=== PATIENT | female | born 1950 | race Caucasian/White ===

== ENCOUNTER → 2019-08-28 11:15 | Outpatient (BNVA) | payer MEDICARE, MEDICAID, SELFPAY | PROVIDERS: Family Provider Nurse Practitioner Family; PCP Nurse Practitioner Family; Visit Provider Nurse Practitioner Family | DX: J06.9 Acute upper respiratory infection, unspecified (principal); J02.9 Acute pharyngitis, unspecified | CPT/HCPCS: 87081; 87880 ==

== ENCOUNTER 2019-08-31 07:28 | Emergency (ER) | payer MEDICARE, MEDICAID, SELFPAY ==
[2019-08-31 07:30] VITALS: BP 162/86; PULSE 72; RESP 20; TEMP 36.7; O2SAT 94; BMI 25.7
--- NOTE | 2019-08-31 07:34 | ED_ITS ---
Entered by Yobani Huitron, acting as scribe for Sumit Zavala DO HPI - Nausea/Vomiting/Diarrhea General: Chief complaint: Headache Stated complaint: N/V Time Seen by Provider: 08/31/19 07:34 History of Present Illness: HPI Narrative: 69 yo female presents with nausea and vomiting. Pt states that she has been vomiting and having diarrhea since midnight last night. Patient later complained of a headache behind the right eye. It is red and inflamed she says that started overnight as well. MD elicited complaint: nausea, vomiting and diarrhea Associated nausea: Yes Associated symtoms: Reports change in vision, dysuria, fatigue and nausea; Denies anxiety, chest pain, dizziness, headache(s), malaise, palpitations or syncope Review of Systems Const: Reports: chills, body aches and fatigue; Denies: fever, malaise or night sweats Eyes: Reports: change in vision and blurry vision ENMT: Denies: throat pain, oral sores/lesions, dental pain, nasal discharge or nasal congestion Card: Denies: chest pain, palpitations, irregular heart rhythm, edema, syncope, shortness of breath on exertion, shortness of breath when lying down or leg pain with exertion Resp: Reports: non-productive cough; Denies: shortness of breath, productive cough or wheezing GI: Reports: nausea, vomiting and diarrhea; Denies: abdominal pain, vomiting blood, coffee grounds in vomit, difficulty swallowing, heartburn/indigestion, constipation, cramping, blood in stool or black tarry stool : Reports: painful urination and urinary frequency; Denies: flank pain, urinary urgency, urinary incontinence or blood in urine Musc: Denies: neck pain, back pain, extremity pain, extremity swelling, joint pain or joint swelling Skin/Breast: Denies: rash, itching or redness Neuro: Denies: headache, numbness in extremities, weakness in extremities, changes in sensation, lack of coordination, difficulty walking, frequent falls, dizziness, vertigo or confusion Psych: Denies: anxiety, depression, loss of interest, visual hallucinations, auditory hallucinations, suicidal ideation or homicidal ideation Endo: Denies: excessive urination, excessive thirst, tired all the time or cold intolerance Dennis/Lymph: Denies: easy bruising, easy bleeding, petechiae, enlarged lymph nodes or tender lymph nodes PFS ED PFSH: Surgical History H/O: hysterectomy History of appendectomy History of eye surgery History of nasal surgery History of tubal ligation Social History (Updated 08/28/19 @ 11:12 by Dana Ortiz LPN) Smoking and tobacco status: current every day smoker cigarettes Packs smoked per day: 0.5 Alcohol intake: never Lives independently: Yes Household members: spouse Housing: House Marital status: History of recent travel: No Physical Exam Const: COMMON NORMALS: average body habitus, oriented x3 and alert GENERAL APPEARANCE: cooperative, comfortable, well kempt and well developed NUTRITIONAL APPEARANCE: not obese ORIENTATION/CONSCIOUSNESS: Yes awake, Yes oriented to person and Yes oriented to place HENMT: COMMON NORMALS: normocephalic, head/scalp atraumatic, EAC's normal, TM's normal bilaterally, external nose normal, moist oral mucous membranes and oropharynx normal HEAD & SCALP: normocephalic and atraumatic NOSE: external nose normal EXTERNAL AUDITORY CANAL: EAC's normal TYMPANIC MEMBRANE: TM's normal bilaterally MOUTH: oral and palatal mucosa normal, lip normal and tongue normal THROAT: posterior oropharynx normal and tonsils normal Eye: COMMON NORMALS: PERRL, EOMs intact bilaterally and no scleral icterus VISUAL ACUITY: Yes visual acuity right eye (Only able to distinguish shapes. Cannot read 1 in print at a distance of 14 to 16 inches.) CONJUNCTIVA: Yes conjunctiva abnormal positive right conjunctival chemosis and conjunctival injection PUPIL: Yes PERRL Neck/C-Spine: COMMON NORMALS: full ROM, no lymphadenopathy, supple, no meningeal signs and thyroid normal THYROID: thyroid normal and asymmetrical Lymph: LYMPHATIC: no lymphadenopathy noted Resp: COMMON NORMALS: normal respiratory effort, no retractions, no use of accessory muscles and clear to auscultation bilaterally AUSCULTATION: clear to auscultation bilaterally Cardio: COMMON NORMALS: regular rate and regular rhythm RATE: regular rate RHYTHM: regular rhythm HEART SOUNDS: no murmurs GI: COMMON NORMALS: normal to inspection, nondistended, normoactive bowel sounds, soft to palpation and no hepatosplenomegaly PALPATION: Yes soft and Yes no hepatosplenomegaly : COMMON NORMALS: Yes no CVA tenderness BLADDER/KIDNEY EXAM: Yes no CVA tenderness Back/Pelvis: COMMON NORMALS: no CVA tenderness LUMBAR SPINE/LOWER BACK: Yes normal to inspection Extremity: COMMON NORMALS: no clubbing, cyanosis or edema, no calf tenderness and no pedal edema Neuro: COMMON NORMALS: oriented x3 SENSORIUM/ORIENTATION: Yes alert, Yes oriented to person and Yes oriented to place MENINGEAL SIGNS: Yes no meningeal signs Psych: APPEARANCE: Yes well kempt Skin: COMMON NORMALS: no rashes or lesions noted and skin turgor normal GENERAL SKIN EXAM: no rashes or lesions noted and turgor normal Course ED course: Patient has an elevated intraocular pressure on the bedside sonometer he she has a pressure of 56. I was able to get a hold of Dr. Hi. At this point to state patient is stable. Her initial complaint was nausea vomiting I thought it was secondary to her bladder infection when I went back to talk to her about her findings she began to complain of a headache. She had a cataract surgery a few weeks ago. I get a hold of Dr. Hi he asked to have the patient sent directly to his office we do not have adequate equipment here for a more in-depth eye exam. Patient was discharge instructions to meet Dr. Hi at his office at 1130 she should proceed directly there from the emergency room. Vital Signs: Vital signs: Vital Signs Temperature 98.1 F 08/31/19 07:30 Pulse Rate 57 L 08/31/19 11:21 Respiratory Rate 16 08/31/19 11:21 Blood Pressure 140/84 08/31/19 11:21 Pulse Oximetry 96 08/31/19 11:21 MDM - Nausea/Vomiting/Diarrhea Lab Data: Labs: Lab Results 08/31/19 08/31/19 08/31/19 Range/Units 07:30 07:38 07:38 WBC 10.2 H (4.0-10.0) 10^3/ uL RBC 5.26 (4.1-5.3) 10^6/u L Hgb 14.9 (11.5-15.3) g/dL Hct 47.3 H (37.0-47.0) % MCV 89.9 (81-99) fL MCH 28.3 (28.0-34.0) pg MCHC 31.5 (30.0-36.0) g/dL RDW 13.3 (12.1-15.1) % Plt Count 245 (130-400) 10^3/c mm MPV 11.7 H (7.4-10.4) fL Neut % (Auto) 81.0 % Lymph % (Auto) 14.5 % [place] % (Auto) 3.7 % Eos % (Auto) 0.1 % Baso % (Auto) 0.4 % Neut # (Auto) 8.3 H (1.8-7.7) 10^3/u L Lymph # (Auto) 1.5 (0.8-4.8) 10^3/u L [place] # (Auto) 0.4 (0.2-0.9) 10^3/u L Eos # (Auto) 0.0 (0.0-0.8) 10^3/u L Baso # (Auto) 0.0 (0.0-0.1) 10^3/u L Nucleated RBC % (a uto) 0 % Nucleated RBCs # 0.0 /100WBC Sodium 142 (136-145) mmol/L Potassium 4.0 (3.5-5.1) mmol/L Chloride 98 (98-107) mmol/L Carbon Dioxide 29 (22-29) mmol/L Anion Gap 19.0 (5-19) BUN 15 (8-23) mg/dL Creatinine 0.8 (0.5-0.9) mg/dL Glucose 157 H (65-115) mg/dL Calcium 10.2 (8.5-10.5) mg/dL Total Bilirubin 0.6 (0.15-1.2) mg/dL AST 24 (0-32) U/L ALT 23 (0-33) U/L Alkaline Phosphata se 34 L (35-105) IU/L Total Protein 8.7 (6.6-8.7) g/dL Albumin 4.3 (3.5-5.2) g/dL Globulin 4.4 (1.3-4.6) g/dL Lipase 27 (13-60) U/L Urine Color Yellow (Yellow) Urine Appearance Hazy A (CLEAR) Urine pH 8 H (5-7) Ur Specific Gravit y 1.010 (1.005-1.030) Urine Protein Neg (Negative) Urine Glucose (UA) Norm (Normal) Urine Ketones 1+ H (Negative) Urine Blood Neg (Negative) Urine Nitrate Negative (Negative) Urine Bilirubin Neg (NEGATIVE) Prot Sulfosalicyli c Acd Negative Urine Urobilinogen 1 H (Negative) mg/dL Ur Leukocyte Racquel ase 2+ H (Negative) Urine RBC None (0-2) /hpf Urine WBC 15-25 H (0-5) /hpf Ur Squamous Epith Cells 5-10 H (0-5) Amorphous Sediment 1+ Urine Bacteria 2+ H (NONE) Urine Mucus 1+ Discharge Plan Discharge Patient Disposition: Home, Self-Care Clinical Impression: Glaucoma, Cystitis Condition: Stable Prescriptions: New Macrobid 100 mg capsule 100 mg PO Q12H 5 Days Qty: 10 RF: 0 No Action promethazine-DM 6.25-15 mg/5 mL syrup 5 - 10 ml PO Q6H PRN (Reason: cough) 14 Days Qty: 240 RF: 0 Aleve 220 mg Tablet 220 mg PO BID PRN (Reason: Pain) RF: 0 prednisol [id number] 1-0.5-0.075 % Drops,Suspension See Rx Instructions .ROUTE .COMPLEX RF: 0 Referrals: Suzanne Mcclure FNP-C [Primary Care Provider] - Socorro Mendoza FNP [Family Provider] - Discharge Diet: Usual diet Discharge Activity: Resume usual activity Activity Restrictions/Additional Instructions: From the emergency room go directly to Dr. Hi's office or he will see you for your elevated eye pressure Discharge Date/Time: 08/31/19 11:22 Coding Level of Care Code ED Welfare Visitor for Chg Fwd Exam Comprehensive The documentation recorded by the Tomy gifford Kialy, accurately reflects the service I personally performed and the decisions made by Lucas mcclain Curtis L, DO Aug 31, 2019 07:28
[2019-08-31 07:43] LABS: Basophils % 0.4 %; Eosinophils % 0.1 %; Hematocrit 47.3 % (37.0-47.0); Hemoglobin 14.9 g/dL (11.5-15.3); Lymphocytes # 1.5 10^3/uL (0.8-4.8); Lymphocytes % 14.5 %; Mean Corpuscular HGB Conc 31.5 g/dL (30.0-36.0); Mean Corpuscular Hemoglobin 28.3 pg (28.0-34.0); Mean Corpuscular Volume 89.9 fL (81-99); Mean Platelet Volume 11.7 fL (7.4-10.4); Monocytes # 0.4 10^3/uL (0.2-0.9); Monocytes % 3.7 %; Neutrophils # 8.3 10^3/uL (1.8-7.7); Nucleated Red Blood Cells % 0 %; Platelet Count 245 10^3/cmm (130-400); Red Blood Count 5.26 10^6/uL (4.1-5.3); Red Cell Distribution Width 13.3 % (12.1-15.1); White Blood Count 10.2 10^3/uL (4.0-10.0)
[2019-08-31] MEDS: sodium chloride 0.9% 1,000 ML 999 ML IV (07:43)
[2019-08-31 07:44] VITALS: BP 162/86; RESP 16; O2SAT 97
[2019-08-31] MEDS: ondansetron 2 mg/ML SDV 2 mL 4 MG IVP (07:44)
[2019-08-31 07:46] VITALS: RESP 16
[2019-08-31 08:01] LABS: Alanine Aminotransferase 23 U/L (0-33); Albumin Level 4.3 g/dL (3.5-5.2); Alkaline Phosphatase 34 IU/L (35-105); Aspartate Amino Transferase 24 U/L (0-32); Blood Urea Nitrogen 15 mg/dL (8-23); Calcium 10.2 mg/dL (8.5-10.5); Carbon Dioxide 29 mmol/L (22-29); Chloride 98 mmol/L (98-107); Globulin 4.4 g/dL (1.3-4.6); Glucose 157 mg/dL (65-115); Lipase 27 U/L (13-60); Sodium 142 mmol/L (136-145); Total Bilirubin 0.6 mg/dL (0.15-1.2); Total Protein 8.7 g/dL (6.6-8.7)
[2019-08-31 08:18] LABS: Bilirubin Urine Neg (NEGATIVE); Blood Urine Neg (Negative); Glucose Urine UA Norm (Normal); Ketones Urine 1+ (Negative); Leukocyte Esterase Urine 2+ (Negative); Nitrate Urine Negative (Negative); Protein Urine Neg (Negative); Sulfosalicylic Acid Urine Negative; Urine Appearance Hazy (CLEAR); Urine Color Yellow (Yellow); Urobilinogen Urine 1 mg/dL (Negative); pH Urine 8 (5-7)
[2019-08-31 08:19] LABS: Add Urine Microscopic? YES
[2019-08-31 08:22] LABS: Amorphous Sediment Urine 1+; Bacteria Urine 2+; Mucus Urine 1+; WBC Urine 15-25 /hpf (0-5)
[2019-08-31 08:23] LABS: Add Urine Culture? Yes
[2019-08-31] MEDS: sodium chlor 0.9% + KCl 20 mEq 20 MEQ/1,000 ML BAG 125 MEQ IV (08:25)
[2019-08-31] MEDS: cefTRIAXone 1,000 MG in sodium chloride 0.9% (plus) 50 ML 100 MG IV (08:52)
[2019-08-31 09:25] VITALS: RESP 17; O2SAT 96
[2019-08-31] MEDS: morphine 4 mg/mL SDV 1 mL IVP (09:25)
[2019-08-31] MEDS: tetracaine 0.5% Op Soln 4 mL Btl 1 DROP EYE-RIGHT (11:11)
[2019-08-31 11:17] VITALS: RESP 16; O2SAT 95
[2019-08-31] MEDS: morphine 4 mg/mL SDV 1 mL 2 MG IVP (11:17)
[2019-08-31 11:21] VITALS: BP 140/84; PULSE 57; RESP 16; O2SAT 96
== END 2019-08-31 11:22 | disposition home or self-care (01) ==
PROVIDERS: Emergency Provider Family Medicine; Family Provider Nurse Practitioner Family; PCP Nurse Practitioner Family
DX: N30.90 Cystitis, unspecified without hematuria (principal); H40.9 Unspecified glaucoma; F17.210 Nicotine dependence, cigarettes, uncomplicated
CPT/HCPCS: 12345; 80053; 81001; 83690; 85025; 87086; 96365; 96366; 96375; 96376; 99283; 99284; A9270; J0696; J2270; J2405; J7030

== ENCOUNTER 2020-06-04 12:31 | Outpatient (CLI) | payer MEDICARE, MEDICAID, SELFPAY ==
--- NOTE | 2020-06-04 12:44 | XR_ITS ---
WS: [id number] HIP WITH PELVIS LEFT TECHNIQUE: 3 views of the left hip with pelvis CLINICAL INFORMATION: S79.919A - Unspecified injury of unspecified hip, initial encounter COMPARISON: None. FINDINGS: Mild degenerative arthritis left hip with mild joint space narrowing. No acute fractures. Normal visu alized left pubic rami. XR/XR hip LT 2-3V wo/w pel* [id number] IMPRESSION: Mild degenerative arthritis left hip. No acute fractures.
== END 2020-06-04 12:32 | disposition home or self-care (01) ==
PROVIDERS: PCP Nurse Practitioner Family; Visit Provider Nurse Practitioner Family
DX: S79.919A Unspecified injury of unspecified hip, initial encounter (principal); X58.XXXA Exposure to other specified factors, initial encounter; M16.12 Unilateral primary osteoarthritis, left hip
CPT/HCPCS: 73502

== ENCOUNTER → 2020-11-04 15:32 | Outpatient (BNVA) | payer MEDICARE, MEDICAID, SELFPAY | PROVIDERS: PCP Nurse Practitioner Family; Visit Provider Nurse Practitioner | DX: M77.8 Other enthesopathies, not elsewhere classified (principal); M21.611 Bunion of right foot; M79.671 Pain in right foot; I10 Essential (primary) hypertension; Z79.899 Other long term (current) drug therapy | CPT/HCPCS: 73630; 80053; 80061; 83036; 84443; 85025 ==

== ENCOUNTER → 2022-03-23 10:15 | Outpatient (BNVA) | payer MEDICARE, MEDICAID, SELFPAY | PROVIDERS: PCP Nurse Practitioner Family; Visit Provider Nurse Practitioner | DX: M79.18 Myalgia, other site (principal); M79.605 Pain in left leg; E78.2 Mixed hyperlipidemia; I10 Essential (primary) hypertension | CPT/HCPCS: 80053; 80061; 84443; 85025 ==

== ENCOUNTER → 2022-03-30 09:00 | Outpatient (BNVA) | payer MEDICARE, MEDICAID, SELFPAY | PROVIDERS: PCP Nurse Practitioner Family; Visit Provider Nurse Practitioner | DX: M79.605 Pain in left leg (principal) | CPT/HCPCS: 73562; 73590 ==

== ENCOUNTER 2022-04-26 11:24 | Outpatient (CLI) | payer MEDICARE, MEDICAID, SELFPAY ==
--- NOTE | 2022-04-26 11:36 | MM_ITS ---
WS: [id number] BILATERAL SCREENING DIGITAL TOMOSYNTHESIS MAMMOGRAM WITH CAD HISTORY: Z12.39 - Encounter for other screening for malignant neoplasm... COMPARISON: 06/12/2017 and 10/07/2013 Bilateral CC and MLO views with tomosynthesis and synthetic mammography submitted. Computer aided det ection analyzed. Breast composition: There are scattered areas of fibroglandular density. No suspicious masses, microc alcifications or architectural distortion. Stable 5 mm nodule upper outer LEFT breast. Benign breast arterial calcifications. MM/[place] [id number] IMPRESSION: BI-RADS: 2-Benign FOLLOW UP: 1 Year Follow-up
== END 2022-04-26 11:25 | disposition home or self-care (01) ==
LOC: RAD 11:25
PROVIDERS: PCP Nurse Practitioner; Visit Provider Nurse Practitioner
DX: Z12.31 Encounter for screening mammogram for malignant neoplasm of breast (principal)
CPT/HCPCS: 77063; 77067

== ENCOUNTER → 2022-06-03 09:38 | Outpatient (BNVA) | payer MEDICARE, MEDICAID, SELFPAY | PROVIDERS: PCP Nurse Practitioner; Visit Provider Nurse Practitioner | DX: R30.0 Dysuria (principal); M79.18 Myalgia, other site; N39.0 Urinary tract infection, site not specified | CPT/HCPCS: 81000 ==

== ENCOUNTER → 2022-07-28 10:53 | Outpatient (BNVA) | payer MEDICARE, MEDICAID, SELFPAY | PROVIDERS: PCP Nurse Practitioner; Visit Provider Nurse Practitioner | DX: R30.0 Dysuria (principal); K59.01 Slow transit constipation; M51.36 Other intervertebral disc degeneration, lumbar region | CPT/HCPCS: 74018; 81000 ==

== ENCOUNTER → 2022-08-22 13:24 | Outpatient (BNVA) | payer MEDICARE, MEDICAID, SELFPAY | PROVIDERS: PCP Nurse Practitioner; Visit Provider Nurse Practitioner | DX: R39.11 Hesitancy of micturition (principal) | CPT/HCPCS: 81000 ==

== ENCOUNTER 2022-09-02 10:14 | Outpatient (CLI) | payer MEDICARE, MEDICAID, SELFPAY ==
--- NOTE | 2022-09-02 11:15 | US_ITS ---
WS: [id number] RENAL ULTRASOUND URINARY BLADDER ULTRASOUND HISTORY: R39.11 - Hesitancy of micturition COMPARISON: None available. TECHNIQUE: 2-D and color Doppler imaging of the kidney submitted. Right kidney: 9.8 cm x 4.6 cm x 4.1 cm. Normal size kidney with no hydronephrosis. Cortical cyst lower pole measures 1.5 x 1.4 x 1.6 cm. Left kidney: 11.5 cm x 3.9 cm x 5.1 cm. Normal size kidney. No hydronephrosis or solid mass. Minimally complex cyst lower pole measures 1.4 x 1.4 x 2.1 cm. Aorta: Normal. Urinary Bladder: Normal distention. Good distention with no filling defect. Post void residual of 100 cc. US/US renal BI with PV bladder IMPRESSION: 1. No renal atrophy or obstruction. 2. Bilateral lower pole cortical cysts. 3. Minimal post void residual.
== END 2022-09-02 10:15 | disposition home or self-care (01) ==
PROVIDERS: PCP Nurse Practitioner; Visit Provider Nurse Practitioner
DX: R39.11 Hesitancy of micturition (principal); Q61.02 Congenital multiple renal cysts
CPT/HCPCS: 76770; 76857

== ENCOUNTER → 2023-04-12 14:52 | Outpatient (BNVA) | payer MEDICARE, MEDICAID, SELFPAY | PROVIDERS: PCP Nurse Practitioner; Visit Provider Nurse Practitioner | DX: R39.11 Hesitancy of micturition (principal); R10.32 Left lower quadrant pain | CPT/HCPCS: 80053; 81000; 85025 ==

== ENCOUNTER 2023-04-24 07:32 | Outpatient (CLI) | payer MEDICARE, MEDICAID, SELFPAY ==
--- NOTE | 2023-04-24 08:30 | CT_ITS ---
WS: [id number] CT ABDOMEN PELVIS TECHNIQUE: Noncontrast CT of the abdomen and pelvis with coronal and sagittal reformatted images. CLINICAL INFORMATION: R10.32 - Left lower quadrant pain COMPARISON: 2016 DLP: 450.[address] scans at [facility] use at least one of these dose optimization techniques: automated e xposure control; mA and/or kV adjustment per patient size (includes targeted exams where dose is matc hed to clinical indication); or iterative reconstruction. FINDINGS: Slight bibasilar atelectasis. Noncontrast liver is normal. Normal noncontrast spleen. Small esophageal hiatal hernia. Adrenal glands are normal. No hydronephrosis in either kidney. Small bilat eral renal cysts. No obstructing renal or ureteral calculi. Noncontrast pancreas is normal. Adrenal g lands are normal. Normal caliber abdominal aorta. Aortic calcification. Sigmoid diverticulosis. No evidence of acute diverticulitis. No evidence of high-grade small or large bowel obstruction. Slight retrolisthesis L2 on L3 and L3 on L4. Prior hysterectomy. IMPRESSION: 1. No hydronephrosis in either kidney. No obstructing renal or ureteral calculi. 2. Sigmoid diverticulosis. No evidence of acute diverticulitis. 3. Small esophageal hernia. 4. Prior hysterectomy. 5. No other acute findings.
[2023-04-24] MEDS: iohexol 350 mg/mL 500 mL Btl (per mL) PO (08:44)
== END 2023-04-24 07:33 | disposition home or self-care (01) ==
PROVIDERS: PCP Nurse Practitioner; Visit Provider Nurse Practitioner
DX: R10.32 Left lower quadrant pain (principal); K57.30 Diverticulosis of large intestine without perforation or abscess without bleeding; K44.9 Diaphragmatic hernia without obstruction or gangrene; Z90.710 Acquired absence of both cervix and uterus
CPT/HCPCS: 74176; Q9967

== ENCOUNTER → 2023-09-26 15:24 | Outpatient (BNVA) | payer MEDICARE, MEDICAID, SELFPAY | PROVIDERS: PCP Nurse Practitioner; Visit Provider Nurse Practitioner | DX: M79.602 Pain in left arm (principal); M25.532 Pain in left wrist | CPT/HCPCS: 73090; 73110 ==

== ENCOUNTER → 2023-10-18 09:52 | Outpatient (BNVA) | payer MEDICARE, MEDICAID, SELFPAY | PROVIDERS: PCP Nurse Practitioner; Visit Provider Specialist | DX: S62.341A Nondisplaced fracture of base of second metacarpal bone, left hand, initial encounter for closed fracture; W18.39XA Other fall on same level, initial encounter; Z46.89 Encounter for fitting and adjustment of other specified devices; S62.311D Displaced fracture of base of second metacarpal bone, left hand, subsequent encounter for fracture with routine healing; X58.XXXD Exposure to other specified factors, subsequent encounter | CPT/HCPCS: 26600; 73110; 97760; 99204; L3809 ==

== ENCOUNTER 2023-10-18 11:30 | Outpatient (CLI) | payer MEDICARE, MEDICAID, SELFPAY | END 2023-10-18 11:31 | disposition home or self-care (01) | LOC: SPT 11:30 | PROVIDERS: PCP Nurse Practitioner; Visit Provider Specialist | DX: Z46.89 Encounter for fitting and adjustment of other specified devices (principal); S62.311D Displaced fracture of base of second metacarpal bone, left hand, subsequent encounter for fracture with routine healing; X58.XXXD Exposure to other specified factors, subsequent encounter | CPT/HCPCS: 97760; 99204; L3809 ==

== ENCOUNTER → 2023-11-15 09:59 | Outpatient (BNVA) | payer MEDICARE, MEDICAID, SELFPAY | PROVIDERS: PCP Nurse Practitioner; Visit Provider Specialist | DX: S62.341D Nondisplaced fracture of base of second metacarpal bone, left hand, subsequent encounter for fracture with routine healing (principal); X58.XXXD Exposure to other specified factors, subsequent encounter | CPT/HCPCS: 73110; 99024 ==

== ENCOUNTER 2024-08-23 12:46 | Outpatient (CLI) | payer MEDICARE, MEDICAID, SELFPAY ==
--- NOTE | 2024-08-23 13:00 | MM_ITS ---
WS: [id number] BILATERAL 3D TOMOSYNTHESIS DIGITAL SCREENING MAMMOGRAPHY WITH CAD CLINICAL INFORMATION: Z12.31 - Encounter for screening mammogram for malignant ... HISTORY: Screening mammogram. No current complaints. COMPARISON: 2021 TECHNIQUE: Bilateral CC and MLO views. FINDINGS: Scattered fibroglandular densities bilaterally. No suspicious focal mass, asymmetry, calcifications, or architectural distortion. No evidence of malignancy. Vascular calcification MM/MM scr BI tomosynthesis [id number] IMPRESSION: DENSITY: There are scattered areas of fibroglandular density. BI-RADS: 2 - Benign. FOLLOW UP: 1 Year Follow-up Recommend return to annual screening mammography.
--- NOTE | 2024-08-23 13:30 | XR_ITS ---
WS: [email or web address] SCREENING DEXA SCAN [employer] CLINICAL INFORMATION: Z78.0 - Asymptomatic menopausal state COMPARISON: None. FINDINGS: The L1-L4 bone mineral density measures 1.475 g/cm2. This corresponds to a T score score of 2.5 and Z score of 3.7. Left femoral neck bone mineral density measures 1.074 g/cm2. This corresponds to a T score of 0.5 and Z score of 2.0. Right femoral neck bone mineral density measures 1.034 g/cm2. This corresponds to a T score 0.2of and Z score of 1.6. Mean femoral neck bone mineral density measures 1.054 g/cm2. This corresponds to a T score of 0.4 and Z score of 1.8. XR/XR DEXA axial skeleton* [id number] IMPRESSION: Normal bone mineralization. Patient's FRAX calculated 10 year probability for major osteoporotic fracture i s 11.0% and osteoporotic hip fracture is 2.0%.
== END 2024-08-23 12:47 | disposition home or self-care (01) ==
LOC: RAD 12:47
PROVIDERS: PCP Nurse Practitioner; Visit Provider Nurse Practitioner
DX: Z12.31 Encounter for screening mammogram for malignant neoplasm of breast (principal); Z78.0 Asymptomatic menopausal state; R92.323 Mammographic fibroglandular density, bilateral breasts; R92.1 Mammographic calcification found on diagnostic imaging of breast
CPT/HCPCS: 77063; 77067; 77080

== ENCOUNTER → 2024-08-27 09:43 | Outpatient (BNVA) | payer MEDICARE, MEDICAID, SELFPAY | PROVIDERS: PCP Nurse Practitioner; Visit Provider Nurse Practitioner | DX: E55.9 Vitamin D deficiency, unspecified (principal); E78.2 Mixed hyperlipidemia | CPT/HCPCS: 80053; 80061; 82306; 82607; 84443; 85025 ==

== ENCOUNTER → 2025-03-24 10:23 | Outpatient (BNVA) | payer MEDICARE, MEDICAID, SELFPAY | PROVIDERS: PCP Nurse Practitioner; Visit Provider Nurse Practitioner | DX: I10 Essential (primary) hypertension (principal) | CPT/HCPCS: 81000 ==